=== PATIENT | male | born 2000 | race Caucasian/White ===

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

== ENCOUNTER 2021-01-31 19:17 | Emergency (ER) | payer BC ==
[2021-01-31 19:26] VITALS: RESP 17; TEMP 98.6
[2021-01-31 20:00] LABS: Basophils # (A) 0.1 k/uL (0-0.2); Basophils % (A) 1 %; Eosinophils # (A) 0.1 k/uL (0-0.7); Eosinophils % (A) 3 %; HCT 47.8 % (39.0-53.0); HGB 16.4 gm/dL (13.0-17.5); Lymphocytes # (A) 0.7 k/uL (1.0-4.8); Lymphocytes % (A) 18 %; MCH 28.6 pg (25.0-35.0); MCHC 34.3 g/dL (31.0-37.0); MCV 83.4 fL (80.0-100.0); Mean Platelet Volume 11.7; Monocytes # (A) 0.2 k/uL (0-1.0); Monocytes % (A) 5 %; Neutrophils # (A) 2.9 k/uL (1.3-7.7); Neutrophils % (A) 71 %; Platelet Count 137 k/uL (150-450); RBC 5.73 m/uL (4.30-5.90); WBC 4.1 k/uL (4.0-11.0)
[2021-01-31 20:06] LABS: ALT 16 U/L (4-49); AST 25 U/L (17-59); African American GFR (CKD) >90 (>60 ml/min/1.73 sqM); Albumin 4.6 g/dL (3.5-5.0); Alkaline Phosphatase 56 U/L (38-126); Anion Gap 12 mmol/L; Blood Urea Nitrogen 12 mg/dL (9-20); Calcium 9.3 mg/dL (8.4-10.2); Carbon Dioxide 23 mmol/L (22-30); Chloride 102 mmol/L (98-107); Glucose 111 mg/dL (74-99); Lipase 42 U/L (23-300); Non-African American GFR(CKD) >90 (>60 ml/min/1.73 sqM); Potassium 4.1 mmol/L (3.5-5.1); Sodium 137 mmol/L (137-145); Total Bilirubin 0.7 mg/dL (0.2-1.3); Total Protein 6.8 g/dL (6.3-8.2)
--- NOTE | 2021-01-31 20:31 | CT ---
EXAMINATION TYPE: CT abdomen pelvis w con DATE OF EXAM: 01/31/2021 COMPARISON: Radiograph 12/17/2008. HISTORY: RLQ pain CT DLP: 864.5 mGycm Automated exposure control for dose reduction was used. TECHNIQUE: Helical acquisition of images was performed from the lung bases through the pelvis. CONTRAST: Performed without Oral Contrast and with IV Contrast, patient injected with 100 mL of Isovue 300. FINDINGS: LUNG BASES: No significant abnormality is appreciated. LIVER/GB: No significant abnormality is appreciated. PANCREAS: No significant abnormality is seen. SPLEEN: No significant abnormality is seen. ADRENALS: No significant abnormality is seen. KIDNEYS: No significant abnormality is seen. FREE AIR: No free air is visualized. RETROPERITONEAL ADENOPATHY: None visualized REPRODUCTIVE ORGANS: No significant abnormality is seen URINARY BLADDER: No significant abnormality is seen. PELVIC ADENOPATHY: None visualized. OSSEOUS STRUCTURES: No significant abnormality is seen. BOWEL: No significant abnormality is seen. OTHER: None IMPRESSION: GROSSLY UNREMARKABLE OF ABDOMEN/PELVIS.
--- NOTE | 2021-01-31 20:41 | ED ---
Abdominal Pain HPI - General Chief Complaint: Abdominal Pain Stated Complaint: possible appendicitis Time Seen by Provider: 01/31/21 19:30 Source: patient Mode of arrival: ambulatory Limitations: no limitations - History of Present Illness Initial Comments: Patient presents with abdominal pain. He states it has been there for 2 days. It is in the left or right lower quadrant. The pain doesn't radiate anywhere else. His doctor was concerned for appendicitis. He has no blood in the stool or dysuria. He has no nausea or vomiting. He has no weakness or lightheadedness. He has no fevers or chills. - Related Data Home Medications Medication Instructions Recorded Confirmed 5Hydroxytryptophan(Oxitriptan) 200 mg PO DAILY 08/04/19 08/04/19 [5-Htp] Cholecalciferol [Vitamin D3 (25 2,000 unit PO DAILY 08/04/19 08/04/19 Mcg = 1000 Iu)] Dextroamphetamine/Amphetamine 20 mg PO QAM 08/04/19 08/04/19 [Adderall Xr] Escitalopram [Lexapro] 5 mg PO DAILY 08/04/19 08/04/19 Famotidine [Pepcid] 40 mg PO DAILY 08/04/19 08/04/19 Fluticasone Nasal [place] [Flonase 2 spr EA NOSTRIL DAILY 08/04/19 08/04/19 Nasal [place]] Loratadine [Claritin] 10 mg PO DAILY 08/04/19 08/04/19 Ondansetron Odt [Zofran Odt] 4 mg PO Q4H PRN 08/04/19 08/04/19 cloNIDine HCL [Catapres] 0.1 mg PO HS 08/04/19 08/04/19 Previous Rx's Medication Instructions Recorded predniSONE [Deltasone] 20 mg PO BID 5 Days #10 tab 04/22/20 Allergies Allergy/AdvReac Type Severity Reaction Status Date / Time Penicillins Allergy Rash/Hives Verified 01/31/21 19:26 Review of Systems ROS Statement: Those systems with pertinent positive or pertinent negative responses have been documented in the HPI. ROS Other: All systems not noted in ROS Statement are negative. Past Medical History Additional Past Medical History / Comment(s): celiac disease History of Any Multi-Drug Resistant Organisms: None Reported Past Surgical History: Ear Surgery Past Psychological History: ADD/ADHD, Anxiety Smoking Status: Never smoker Past Alcohol Use History: None Reported Past Drug Use History: None Reported General Exam Limitations: no limitations General appearance: alert, in no apparent distress Head exam: Present: atraumatic, normocephalic, normal inspection Eye exam: Present: normal appearance, PERRL, EOMI. Absent: scleral icterus, conjunctival injection, periorbital swelling ENT exam: Present: normal exam, mucous membranes moist Neck exam: Present: normal inspection. Absent: tenderness, meningismus, lymphadenopathy Respiratory exam: Present: normal lung sounds bilaterally. Absent: respiratory distress, wheezes, rales, rhonchi, stridor Cardiovascular Exam: Present: regular rate, normal rhythm, normal heart sounds. Absent: systolic murmur, diastolic murmur, rubs, gallop, clicks GI/Abdominal exam: Present: soft, tenderness, normal bowel sounds. Absent: dis tended, guarding, rebound, rigid Extremities exam: Present: normal inspection, full ROM, normal capillary refill. Absent: tenderness, pedal edema, joint swelling, calf tenderness Back exam: Present: normal inspection Neurological exam: Present: alert, oriented X3, CN II-XII intact Psychiatric exam: Present: normal affect, normal mood Skin exam: Present: warm, dry, intact, normal color. Absent: rash Course Vital Signs 01/31/21 19:23 Temperature 98.6 F Pulse Rate 66 Respiratory 17 Rate Blood Pressure 120/85 O2 Sat by Pulse 96 Oximetry Medical Decision Making - Medical Decision Making Patient presents with belly pain. He has a little tenderness. I obtained a CT. It is totally negative. Patient is tolerating oral intake. Here he is stable for discharge. - Lab Data Result diagrams: 01/31/21 19:47 01/31/21 19:47 Lab Results 01/31/21 01/31/21 Range/Units 19:47 19:47 WBC 4.1 (4.0-11.0) k/uL RBC 5.73 (4.30-5.90) m/uL Hgb 16.4 (13.0-17.5) gm/dL Hct 47.8 (39.0-53.0) % MCV 83.4 (80.0-100.0) fL MCH 28.6 (25.0-35.0) pg MCHC 34.3 (31.0-37.0) g/dL RDW 13.0 (11.5-15.5) % Plt Count 137 L (150-450) k/uL MPV 11.7 Neutrophils % 71 % Lymphocytes % 18 % Monocytes % 5 % Eosinophils % 3 % Basophils % 1 % Neutrophils # 2.9 (1.3-7.7) k/uL Lymphocytes # 0.7 L (1.0-4.8) k/uL Monocytes # 0.2 (0-1.0) k/uL Eosinophils # 0.1 (0-0.7) k/uL Basophils # 0.1 (0-0.2) k/uL Sodium 137 (137-145) mmol/L Potassium 4.1 (3.5-5.1) mmol/L Chloride 102 (98-107) mmol/L Carbon Dioxide 23 (22-30) mmol/L Anion Gap 12 mmol/L BUN 12 (9-20) mg/dL Creatinine 0.83 (0.66-1.25) mg/dL Est GFR (CKD-EPI)AfAm >90 (>60 ml/min/1.73 sqM) Est GFR (CKD-EPI)NonAf >90 (>60 ml/min/1.73 sqM) Glucose 111 H (74-99) mg/dL Calcium 9.3 (8.4-10.2) mg/dL Total Bilirubin 0.7 (0.2-1.3) mg/dL AST 25 (17-59) U/L ALT 16 (4-49) U/L Alkaline Phosphatase 56 (38-126) U/L Total Protein 6.8 (6.3-8.2) g/dL Albumin 4.6 (3.5-5.0) g/dL Lipase 42 (23-300) U/L Disposition Clinical Impression: Abdominal pain Disposition: HOME SELF-CARE Condition: Good Instructions (If sedation given, give patient instructions): Abdominal Pain in Children (ED) Is patient prescribed a controlled substance at d/c from ED?: No Referrals: Eladio Clifford MD [Primary Care Provider] - 1-2 days
[2021-01-31 20:54] VITALS: BP 118/64; PULSE 60
== END 2021-01-31 20:54 | disposition home or self-care (01) ==
LOC: EC 19:17
DX: R10.31 Right lower quadrant pain (principal); Z88.0 Allergy status to penicillin
CPT/HCPCS: 36415; 80053; 83690; 85025; 74177; 99284; Q9967

== ENCOUNTER → 2022-02-17 | Outpatient (CLI) | payer BC ==
--- NOTE | 2022-02-17 21:04 | US ---
EXAMINATION TYPE: US liver DATE OF EXAM: 02/17/2022 COMPARISON: CT abdomen pelvis 01/31/2021 CLINICAL HISTORY: R74.01 ELEVATION OF LEVELS OF LIVER TRANSAMINASE L. TECHNIQUE: Multiple sonographic images of the right upper quadrant are obtained. FINDINGS: EXAM MEASUREMENTS: Liver Length: 14.3 cm Gallbladder Wall: 0.3 cm CBD: 0.3 cm Right Kidney: 9.5 x 3.7 cm KNITTING SUPERVISOR NOTES: Severe overlying bowel gas, technically difficult limited study. Pancreas: Obscured by bowel gas Liver: somewhat limited visualization appears wnl Gallbladder: wnl Evidence for sonographic Mckeon's sign: no CBD: wnl Right Kidney: Inferior pole obscured by overlying bowel gas, portions visualized wnl IMPRESSION: Limited exam without evidence for acute process.
== END | disposition home or self-care (01) ==
LOC: RADUSWWP 16:22
PROVIDERS: ATTEND Family Medicine
DX: R74.01 Elevation of levels of liver transaminase levels (principal)
CPT/HCPCS: 76705

== ENCOUNTER 2023-05-21 18:00 | Emergency (ER) | payer BC ==
--- NOTE | 2023-05-21 18:34 | ED ---
General Adult HPI - General Chief complaint: Anxiety Stated complaint: panick attack Time Seen by Provider: 05/21/23 18:15 Source: patient, RN notes reviewed Mode of arrival: ambulatory Limitations: no limitations - History of Present Illness Initial comments: 22-year-old male presents to the emergency department with chief complaint of panic attack. He states that he has been feeling increased anxiety since 2pm. He states that he took a nap and woke up feeling worse. He reports feelings of trembling. He usually takes xanax 0.5mg as needed for anxiety. He reports that he has taken 3 today. He also takes buspar. Denies SI, HI. He does report that he was recently diagnosed with bronchitis and has been steroid, Z-Davi, albuterol inhaler. He has been on these medications since yesterday. - Related Data Home Medications Medication Instructions Recorded Confirmed 5Hydroxytryptophan(Oxitriptan) 200 mg PO DAILY 08/04/19 08/04/19 [5-Htp] Cholecalciferol [Vitamin D3 (25 2,000 unit PO DAILY 08/04/19 08/04/19 Mcg = 1000 Iu)] Dextroamphetamine/Amphetamine 20 mg PO QAM 08/04/19 08/04/19 [Adderall Xr] Escitalopram [Lexapro] 5 mg PO DAILY 08/04/19 08/04/19 Famotidine [Pepcid] 40 mg PO DAILY 08/04/19 08/04/19 Fluticasone Nasal Colony [Flonase 2 spr EA NOSTRIL DAILY 08/04/19 08/04/19 Nasal Colony] Loratadine [Claritin] 10 mg PO DAILY 08/04/19 08/04/19 Ondansetron Odt [Zofran Odt] 4 mg PO Q4H PRN 08/04/19 08/04/19 cloNIDine HCL [Catapres] 0.1 mg PO HS 08/04/19 08/04/19 Previous Rx's Medication Instructions Recorded predniSONE [Deltasone] 20 mg PO BID 5 Days #10 tab 04/22/20 Allergies Allergy/AdvReac Type Severity Reaction Status Date / Time Penicillins Allergy Rash/Hives Verified 05/21/23 18:14 Review of Systems ROS Statement: Those systems with pertinent positive or pertinent negative responses have been documented in the HPI. ROS Other: All systems not noted in ROS Statement are negative. Past Medical History Additional Past Medical History / Comment(s): celiac disease History of Any Multi-Drug Resistant Organisms: None Reported Past Surgical History: Ear Surgery Past Psychological History: ADD/ADHD, Anxiety Smoking Status: Never smoker Past Alcohol Use History: None Reported Past Drug Use History: None Reported General Exam Limitations: no limitations General appearance: alert, anxious Head exam: Present: atraumatic, normocephalic, normal inspection Eye exam: Present: normal appearance, PERRL, EOMI. Absent: scleral icterus, conjunctival injection, periorbital swelling ENT exam: Present: normal exam, mucous membranes moist, TM's normal bilaterally, normal external ear exam Neck exam: Present: normal inspection. Absent: tenderness, meningismus, lymphadenopathy Respiratory exam: Present: normal lung sounds bilaterally. Absent: respiratory distress, wheezes, rales, rhonchi, stridor Cardiovascular Exam: Present: regular rate, normal rhythm, normal heart sounds. Absent: systolic murmur, diastolic murmur, rubs, gallop, clicks GI/Abdominal exam: Present: soft, normal bowel sounds. Absent: distended, tenderness, guarding, rebound, rigid Neurological exam: Present: alert, oriented X3 Psychiatric exam: Present: normal affect, normal mood Skin exam: Present: warm, dry, intact, normal color. Absent: rash Course Vital Signs 05/21/23 18:12 Temperature 97.8 F Pulse Rate 94 Respiratory 17 Rate Blood Pressure 131/79 O2 Sat by Pulse 95 Oximetry Medical Decision Making - Medical Decision Making Was pt. sent in by a medical professional or institution (, PA, HOSE TENDER, urgent care, hospital, or fpc...) When possible be specific @ -No Did you speak to anyone other than the patient for history (EMS, parent, family, police, friend...)? What history was obtained from this source @ -No Did you review nursing and triage notes (agree or disagree)? Why? @ -I reviewed and agree with nursing and triage notes Were old charts reviewed (outside hosp., previous admission, EMS record, old EKG, old radiological studies, urgent care reports/EKG's, fpc records)? Report findings @ -No old charts were reviewed Differential Diagnosis (chest pain, altered mental status, abdominal pain women, abdominal pain men, vaginal bleeding, weakness, fever, dyspnea, syncope, headache, dizziness, GI bleed, back pain, seizure, CVA, palpatations, mental health, musculoskeletal)? @ -Differential Mental Health Depression, anxiety, bipolar, psychosis, schizophrenia, borderline personality, situational depression, adjustment disorder, behavioral disorder, brain tumor, malingering, substance abuse, encephalopathy, medication reaction, dementia, hypothyroidism, degenerative neurologic disorder, lupus.... This is not meant to be all-inclusive list EKG interpreted by me (3pts min.). @ -EKG at 1915 shows sinus rhythm rate 78, NV 149, QRS 94, QTQTc 358/391 X-rays interpreted by me (1pt min.). @ -Chest x-ray shows no acute process CT interpreted by me (1pt min.). @ -None done U/S interpreted by me (1pt. min.). @ -None done What testing was considered but not performed or refused? (CT, X-rays, U/S, labs)? Why? @ -None What meds were considered but not given or refused? Why? @ -None Did you discuss the management of the patient with other professionals (professionals i.e. , PA, HOSE TENDER, lab, RT, psych nurse, adoption social worker, criminal defense lawyer, teacher, airline pilot/first officer, cyanide case hardener)? Give summary @ -No Was smoking cessation discussed for >3mins.? @ -No Was critical care preformed (if so, how long)? @ -No Were there social determinants of health that impacted care today? How? (Homelessness, low income, unemployed, alcoholism, drug addiction, tr ansportation, low edu. Level, literacy, decrease access to med. care, fpc, rehab)? @ -No Was there de-escalation of care discussed even if they declined (Discuss DNR or withdrawal of care, Hospice)? DNR status @ -No What co-morbidities impacted this encounter? (DM, HTN, Smoking, COPD, CAD, Cancer, CVA, ARF, Chemo, Hep., AIDS, mental health diagnosis, sleep apnea, morbid obesity)? @ -None Was patient admitted / discharged? Hospital course, mention meds given and route, prescriptions, significant lab abnormalities, going to OR and other pertinent info. @ -discharged. Patient presented to the emergency department for chief complaint of anxiety. He does report a history of anxiety and has had panic attacks are similar to this in the past. Denies SI, HI. He does report taking Xanax today which has not improved his symptoms much. He does also taking steroids for an upper respiratory infection and albuterol. Chest x-ray shows no acute process. Discussed that this likely could be contributing to his symptoms. Patient given ativan. Symptoms improved. Patient stable at time of discharge. Case discussed with Dr. Leyva Undiagnosed new problem with uncertain prognosis? @ -No Drug Therapy requiring intensive monitoring for toxicity (Heparin, Nitro, Insulin, Cardizem)? @ -No Were any procedures done? @ -No Diagnosis/symptom? @ -anxiety Acute, or Chronic, or Acute on Chronic? @ -acute Uncomplicated (without systemic symptoms) or Complicated (systemic symptoms)? @ -uncomplicated Side effects of treatment? @ -No Exacerbation, Progression, or Severe Exacerbation? @ -No Poses a threat to life or bodily function? How? (Chest pain, [place], [place], pneumonia, PE, COPD, DKA, ARF, appy, cholecystitis, CVA, Diverticulitis, Homicidal, Ofelia cidal, threat to staff... and all critical care pts) @ -No Disposition Clinical Impression: Acute anxiety Disposition: HOME SELF-CARE Condition: Stable Instructions (If sedation given, give patient instructions): Generalized Anxiety Disorder (ED) Additional Instructions: Please follow up with your primary care provider. Return to the emergency department for new or worsening symptoms. Is patient prescribed a controlled substance at d/c from ED?: No Referrals: Eladio Clifford MD [Primary Care Provider] - 1-2 days Forms: Work/School Release
[2023-05-21] MEDS ORDERED: LORazepam 2 MG/ML INJ IM STA (18:42)
--- NOTE | 2023-05-21 20:54 | XR ---
EXAMINATION: XR chest 2V: 05/21/2023 7:30 PM CLINICAL INDICATION: cough TECHNIQUE: Departmental protocol COMPARISON: 08/04/2019 FINDINGS: The lungs are clear. The pleural spaces are negative. The cardiac silhouette is not enlarged. The remainder of the mediastinal silhouette is unremarkable. The skeletal structures and soft tissues are negative for acute findings. IMPRESSION: No acute radiographic process.
[2023-05-21 22:15] VITALS: BP 130/70; PULSE 90; RESP 16; TEMP 97.9
== END 2023-05-21 21:49 | disposition home or self-care (01) ==
LOC: EC 18:00
DX: F41.9 Anxiety disorder, unspecified (principal); F90.9 Attention-deficit hyperactivity disorder, unspecified type; Z88.0 Allergy status to penicillin; Z79.899 Other long term (current) drug therapy
CPT/HCPCS: 93005; 71046; 99283; 96372; J2060